=== PATIENT | male | born 1965 | race Caucasian/White ===

== ENCOUNTER 2019-01-07 17:53 | Emergency (ER) | payer OTHER ==
[2019-01-07] MEDS ORDERED: CITALOPRAM HBR10 MG (18:06)
[2019-01-07 18:16] LABS: BASO # 0.1 (0.02-0.10); EOS # 0.1 (0.04-0.40); EOS % 0.5 % (0.0-4.0); HEMATOCRIT 45.6 % (42.0-52.0); LYMPH# 2.7 (1.50-4.00); MEAN CELL VOLUME 93 fl (78-100); MEAN CORPUSCULAR HEMOGLOBIN 33 pg (27-31); MEAN CORPUSCULAR HGB CONC 35 g/dL (33-37); MEAN PLATELET VOLUME 8.6 fl (7.4-10.4); NEU # 9.4 (1.40-6.50); PLATELET COUNT 273 K/mm3 (130-400); RED BLOOD COUNT 4.89 M/mm3 (4.20-5.60); RED CELL DISTRIBUTION WIDTH 13.1 % (11.5-14.5); WHITE BLOOD COUNT 13.2 K/mm3 (4.8-10.8)
[2019-01-07 18:28] LABS: ALBUMIN 4.2 g/dL (3.5-5.0); POTASSIUM 3.4 mmol/L (3.5-5.1); SODIUM 137 mmol/L (136-145)
[2019-01-07 18:29] LABS: CALCIUM 9.4 mg/dL (8.3-10.5)
[2019-01-07 18:30] LABS: GLUCOSE 92 mg/dL (75-110); TOTAL PROTEIN 7.1 g/dL (6.4-8.3)
[2019-01-07 18:32] LABS: TOTAL BILIRUBIN 0.7 mg/dL (0.2-1.2)
[2019-01-07 18:33] LABS: ALCOHOL IN-HOUSE 146 mg/dL (<10)
[2019-01-07 18:35] LABS: AST-SGOT 39 U/L (5-34)
[2019-01-07 18:37] LABS: ALT/SGPT 37 U/L (0-55)
[2019-01-07 19:01] LABS: CARBON DIOXIDE 16 mmol/L (22-29)
[2019-01-07 19:02] LABS: ACETAMINOPHEN < 1 ug/mL
[2019-01-07 21:48] LABS: URINE APPEARANCE CLEAR; URINE COLOR YELLOW; URINE GLUCOSE NEGATIVE (NEGATIVE); URINE KETONE 2+ (NEGATIVE); URINE PROTEIN(semi-quant) NEGATIVE (NEGATIVE)
[2019-01-07 21:49] LABS: URINE BILIRUBIN NEGATIVE (NEGATIVE); URINE BLOOD 50 ery/uL (NEGATIVE); URINE LEUKOCYTE ESTERASE NEGATIVE (NEGATIVE); URINE MUCUS PRESENT (NOT PRESENT); URINE NITRATE NEGATIVE (NEGATIVE); URINE UROBILINOGEN NORMAL (NORMAL); URINE WBC 0-1 /hpf (0-3)
[2019-01-07 21:52] LABS: PARTIAL THROMBOPLASTIN TIME 24.1 SECONDS (21.0-32.0); PROTHROMBIN TIME 10.7 SECONDS (9.0-12.0)
[2019-01-08 05:53] VITALS: BP 149/94
== END 2019-01-08 06:05 | disposition left against medical advice (07) ==
LOC: ED 17:53
PROVIDERS: Nurse Practitioner Family
DX: F32.9 Major depressive disorder, single episode, unspecified (principal); R45.851 Suicidal ideations; F10.10 Alcohol abuse, uncomplicated; F19.10 Other psychoactive substance abuse, uncomplicated; F43.10 Post-traumatic stress disorder, unspecified; F17.290 Nicotine dependence, other tobacco product, uncomplicated; F41.9 Anxiety disorder, unspecified; I10 Essential (primary) hypertension
CPT/HCPCS: J2060; J2405; J2550; J3411; J3490; J7030